=== PATIENT | female | born 1980 | race Caucasian/White ===

== ENCOUNTER → 2016-05-20 | Outpatient (CLI) | payer BC ==
--- NOTE | 2016-05-21 07:25 | REP ---
Clinical: Anatomical evaluation. Comparison: None . Findings: Examination demonstrates a single live intrauterine in breech presentation. motion is identified by technologist. Placenta is noted posteriorly and grade zero without evidence for placenta previa or abruption. Amniotic fluid volume is normal. Cervix measures 6.2 cm in length and appears closed. No evidence for nuchal cord. Gestational age by LMP 19 weeks 5 days with GENIA 10/09/2016 . Gestational age by current measurements 19 weeks 2 days with GENIA 10/12/2016 . FHR equals 131 beats per minute. BPD 4.4 cm 19 weeks 3 days HC 16.5 cm 19 weeks 2 days AC 13.7 cm 19 weeks 1 day FL 2.9 cm 19 weeks 0 days HL 2.9 cm 19 weeks 4 days HC/AC ratio 1.20 Estimated weight 273 grams ( 26 percentile). Anatomical assessment demonstrates normal structures including cranium, choroid plexus, cavum, cerebellum/posterior fossa, lungs, diaphragm, stomach, cord insertion, kidneys/bladder, spine, and upper extremities. Limited evaluation of the facial features, heart/ventricular outflow tracts, three-vessel cord, and lower extremities noted. Impression: Single live intrauterine in breech presentation demonstrating appropriate interval growth. Anatomical limitations as described above. Otherwise normal anatomical assessment. Signed by J Carlos Hester MD 05/21/2016 07:17 A
== END ==
LOC: M RAD 12:43
PROVIDERS: ATTEND Advanced Practice Midwife
DX: Z36 Encounter for antenatal screening of mother (principal)

== ENCOUNTER → 2016-06-09 | Outpatient (CLI) | payer BC ==
--- NOTE | 2016-06-10 03:14 | REP ---
Clinical: Anatomical evaluation. Comparison: 05/20/2016 . Findings: Examination demonstrates a single live intrauterine in breech presentation. motion is identified by technologist. Placenta is noted posterior fundally and grade one without evidence for placenta previa or abruption. Amniotic fluid volume is normal. Cervix measures 5.8 cm in length and appears closed. No evidence for nuchal cord. Gestational age by LMP 22 weeks 4 days with GENIA 10/09/2016 . Gestational age by current measurements 22 weeks 1 day with GENIA 10/12/2016 . FHR equals 153 beats per minutes. Estimated weight 487 grams ( 34th percentile). Anatomical assessment demonstrates normal structures including cranium, choroid plexus, cavum, cerebellum/posterior fossa, facial features, lungs, diaphragm, stomach, cord insertion/three-vessel cord, kidneys/bladder, spine, and extremities. Facial profile along with heart/cardiac ventricular outflow tracts are incompletely evaluated. Impression: Single live intrauterine in breech presentation demonstrating appropriate interval growth. Limited evaluation of the facial profile and heart/ventricular outflow tracts again noted. Remainder of the anatomical assessment is complete and normal. No gross abnormalities are identified. Signed by J Carlos Hester MD 06/10/2016 03:07 A
== END ==
LOC: M RAD 14:39
PROVIDERS: ATTEND Specialist
DX: O09.512 Supervision of elderly primigravida, second trimester (principal)

== ENCOUNTER → 2016-07-03 | Outpatient (CLI) | payer BC ==
--- NOTE | 2016-07-03 13:51 | REP ---
Obstetric sonography: History: Supervision of , followup anatomy, cardiac outflow tract and heart views and facial profile. Comparison sonography June 09, 2016. Findings: Scanning through the gravid uterus demonstrates a viable single intrauterine gestation in a variable lie. motion is observed and heart rate is recorded at 150 beats per minute. A right lateral fundal placenta is seen, grade 1, without evidence of previa or abruption. Amniotic fluid is subjectively normal. Closed cervical length measures 4.8 cm viewed transabdominally. No extrauterine abnormality is observed. There has been appropriate interval growth. No anomaly is seen. spine is less than optimally seen today due to position but was previously identified and evaluated. The following additional anatomic structures are identified and felt to be unremarkable today: cranium, choroid plexus, cavum, cerebellum and posterior fossa, face and profile, lungs, four-chamber heart with left and right ventricular outflow tract views, diaphragm, left-sided stomach, abdominal wall cord insertion, three-vessel umbilical cord, kidneys and bladder, upper and lower extremities. Biometry chart: BPD 6.2 cm 25 weeks 1 day Head circumference 24.3 cm 26 weeks 3 days Abdominal circumference 22.4 cm 26 weeks 6 days Femur length 4.8 cm 26 weeks 1 day Humeral length 4.3 cm 25 weeks 5 days Cerebellar diameter 2.9 cm 25 weeks 3 days HC/AC ratio normal 1.08. Cephalic index is 0.69 (0.70-0.86). Estimated weight 937 grams, 2 pounds 1 ounce, 55th percentile for 26 weeks 0 days. Impression: Viable single intrauterine gestation at 25 week 6 days by today's composite sonographic criteria. Expected gestational age estimate based on prior sonography is 25 weeks 4 days. GENIA by prior sonography October 12, 2016. anatomic survey is felt to be complete. Signed by Wicho Laguerre MD 07/03/2016 03:26 P
== END ==
LOC: M RAD 07:05
PROVIDERS: ATTEND Advanced Practice Midwife
DX: Z34.82 Encounter for supervision of other normal pregnancy, second trimester (principal); Z3A.25 25 weeks gestation of pregnancy

== ENCOUNTER → 2016-07-07 | Outpatient (CLI) | payer BC ==
[2016-07-07 17:40] LABS: MEAN CORPUSCULAR HEMOGLOBIN 30.3 pg (27.0-33.0); RED CELL DISTRIBUTION WIDTH 13.2 % (11.5-14.5); WHITE BLOOD COUNT 8.3 K/mm3 (4.0-10.0)
== END ==
LOC: M LAB 16:17
PROVIDERS: ATTEND Advanced Practice Midwife
DX: Z36 Encounter for antenatal screening of mother (principal)

== ENCOUNTER → 2016-07-14 | Outpatient (CLI) | payer BC | LOC: M LAB 08:17 | PROVIDERS: ATTEND Advanced Practice Midwife | DX: R73.02 Impaired glucose tolerance (oral) (principal) ==

== ENCOUNTER → 2016-08-11 | Outpatient (CLI) | payer BC ==
--- NOTE | 2016-08-11 15:59 | REP ---
OB ULTRASOUND: REASON: Followup growth parameters. Multiple sonographic images of the gravid uterus show a single living intrauterine gestation in a cephalic presentation. Doppler interrogation of the heart shows a heart rate of 143 beats per minute. The placenta is posterior and now low lying. The subjective aminotic fluid volume is within normal limits. The cervix measures 4.4 cm in length and is closed. Evaluation of the maternal adnexa spaces show no abnormalities. The aminotic fluid index is 14.8 within expected range of 8.7-24.0. BPD 7.7 cm = 31 weeks 0 days HC 29.7 cm = 32 weeks 6 days AC 27.7 cm = 31 weeks 5 days FL 6.1 cm = 31 weeks 3 days Estimated weight 1824 grams which is at the 45th percentile for a 31 week 4 day gestational age. IMPRESSION: Single intrauterine gestation as described above with an estimated gestational age of 32 weeks 0 days via composite criteria and an estimated date of delivery of 10/16/2016 by today's exam. Signed by Federico Wilson DO 08/12/2016 09:00 A
== END ==
LOC: M RAD 13:46
PROVIDERS: ATTEND Advanced Practice Midwife
DX: O24.410 Gestational diabetes mellitus in pregnancy, diet controlled (principal); O10.011 Pre-existing essential hypertension complicating pregnancy, first trimester; Z3A.00 Weeks of gestation of pregnancy not specified

== ENCOUNTER → 2016-09-08 | Outpatient (CLI) | payer BC ==
--- NOTE | 2016-09-09 04:19 | REP ---
Clinical: Gestational diabetes for well being. Comparison: 08/11/2016. Findings: Examination demonstrates a single live advanced in cephalic presentation. motion is identified by technologist. Placenta is noted right laterally and grade I without evidence for placenta previa or abruption. Amniotic fluid volume is normal. Nuchal cord cannot be excluded. Gestational age by LMP 35 weeks 4 days with GENIA is 10/09/2016 . Gestational age by current measurements 34 weeks 6 days with GENIA 10/14/2016 . FHR equals 141 beats per minute. BPD 8.3 cm 33 weeks 2 days HC 31.8 cm 35 weeks 5 days AC 31.6 cm 35 weeks 4 days FL 6.8 cm 35 weeks 0 days HL 6.0 cm 34 weeks 5-day HC/AC ratio 1.01 Estimated weight 2606 grams ( 42nd percentile). Amniotic fluid index equals 10.7 cm. Biophysical profile score equals 8/8. Umbilical cord SD ratio equals 1.93 (2.00 - 3.00). Impression: Single live advanced gestation in cephalic presentation. Appropriate growth noted. Biophysical profile score equals 8/8. Signed by J Carlos Hester MD 09/09/2016 04:10 A
== END ==
LOC: M RAD 13:22
PROVIDERS: ATTEND Obstetrics & Gynecology
DX: O24.419 Gestational diabetes mellitus in pregnancy, unspecified control (principal); Z3A.35 35 weeks gestation of pregnancy

== ENCOUNTER → 2016-09-11 | Outpatient (REF) | payer BC | LOC: M LAB REF 12:56 | PROVIDERS: ATTEND Specialist | DX: O24.419 Gestational diabetes mellitus in pregnancy, unspecified control (principal); Z3A.00 Weeks of gestation of pregnancy not specified ==

== ENCOUNTER 2016-09-25 06:21 | Inpatient (IN) | payer BC ==
[~2016-09-25] VITALS: Ht 157.5 cm; Wt 88.4 kg
[~2016-09-25 06:21] MED LIST: ASPI1TAB PO; GLIP2.5T6 PO; LABE10TAB PO; PRENTAB55 PO; TUMS500C PO; TYLE500T78 PO
[2016-09-25] MEDS ORDERED: LR 1,000 ML IV SCH ×2 (06:45→10:30)
[2016-09-25] MEDS ORDERED: BICITRA 30ML SOLN UDC PO ONE (06:45)
[2016-09-25] MEDS ORDERED: LR 800 ML IV ONE (06:45)
[2016-09-25] MEDS ORDERED: OXYC1TAB23 PO (07:06)
[2016-09-25 08:01] LABS: MEAN CORPUSCULAR HEMOGLOBIN 29.2 pg (27.0-33.0); MEAN CORPUSCULAR HGB CONC 33.4 g/dl (32.0-36.5); MEAN CORPUSCULAR VOLUME 87.4 fl (80.0-96.0); WHITE BLOOD COUNT 6.8 K/mm3 (4.0-10.0)
[2016-09-25] MEDS ORDERED: MORPHINE PRES-FREE INJ 10 MG/10 ML VIAL (J2274) As Ordered ONE (08:20)
[2016-09-25] MEDS ORDERED: OXYTOCIN INJ 10 UNITS/ML VIAL (J2590) As Ordered ONE (08:21)
[2016-09-25] MEDS ORDERED: METOCLOPRAMIDE INJ 10MG/2ML VIAL (J2765) IV PRN ×2 (08:42→10:30)
[2016-09-25] MEDS ORDERED: ONDANSETRON 4MG/2ML VIAL (J2405) IV PRN ×3 (08:42→10:30)
[2016-09-25] MEDS ORDERED: NALBUPHINE HCL 10 MG/ML AMP (J2300) IV PRN (08:42)
[2016-09-25] MEDS ORDERED: NALOXONE INJ 0.4 MG/1 ML VIAL (J2310) IV PRN ×2 (08:42)
[2016-09-25] MEDS ORDERED: GLYCOPYRROLATE INJ 0.2 MG/ML 2 ML VIAL As Ordered ONE (08:49)
[2016-09-25] MEDS ORDERED: ePHEDrine SULFATE 25 MG/5 ML(5MG/ML) SYRINGE As Ordered ONE (08:53)
[2016-09-25] MEDS ORDERED: PHENYLephrine HCL 500 MCG/5 ML (100MCG/ML) SYRINGE (J2370) As Ordered ONE (09:02)
[2016-09-25] MEDS ORDERED: KETOROLAC 60 MG/2 ML VIAL (J1885) As Ordered ONE (09:22)
[2016-09-25] MEDS ORDERED: MEASLES,MUMPS,RUBELLA VACCINE INJ (MMR-II) (90707) SC SCH (09:45)
[2016-09-25] MEDS ORDERED: DOCUSATE SODIUM 100 MG CAP PO PRN (09:45)
[2016-09-25] MEDS ORDERED: OXYTOCIN DRIP 30 UNITS in APPROPRIATE DILUENT 1 EA IV ONE (09:45)
[2016-09-25] MEDS ORDERED: RHOGAM 300 MCG (1500 IU) INJ (J2790) IM SCH (09:45)
--- NOTE | 2016-09-25 10:12 | RO ---
DATE OF PROCEDURE: 09/25/2016 PREPROCEDURE DIAGNOSES: 38 weeks, gestational hypertension, gestational diabetes, prior section times one. POSTPROCEDURE DIAGNOSES: 38 weeks, gestational hypertension, gestational diabetes, prior section times one. PROCEDURE: Repeat low transverse section. SURGEON: Dr. Santiago Liang REAGENT TENDER: Ana Maria Hurley ANESTHESIA: Spinal. ESTIMATED BLOOD LOSS: 400 mL. URINE OUTPUT: 175 mL. FLUIDS: 1400 mL of lactated Ringers. FINDINGS: 7 pound 0 ounce or 3172 gram female . scores 8 and 9. DELIVERY SUMMARY: The patient was taken the operating room where spinal anesthesia was induced. She was prepped and draped in a sterile fashion in the supine position. A Flynn catheter was placed. Pfannenstiel skin incision was made with a scalpel and carried through to the fascia. The fascia was nicked and extended. The fascia was dissected off the rectus muscles. The peritoneal cavity was entered. Bladder flap was created. Curvilinear incision was made in the lower uterine segment until clear fluid was noted. This was extended manually. The was delivered in the vertex position without difficulty. The cried spontaneously and was handed to the waiting nurses. Placenta was expressed. The uterus was exteriorized and cleared of clots and debris. The uterine incision was closed with #0 Vicryl in a running locked fashion. A second imbricating layer of #0 Vicryl was placed. The uterus was placed back in the abdominal cavity. Peritoneum was closed with #2-0 Vicryl in a running fashion. The fascia was closed with #0 Vicryl in a running fashion. Subcutaneous layer was irrigated and skin was closed with #4-0 Monocryl subcuticular sutures. Sponge and needle counts were correct.
[2016-09-25] MEDS ORDERED: PERCOCET 5MG/325MG TAB PO PRN (10:30)
[2016-09-25] MEDS ORDERED: fentaNYL 100 MCG/2 ML INJECTION (J3010) IV PRN (10:30)
[2016-09-25 11:35] VITALS: BP 125/60
[2016-09-25 12:10] VITALS: BP 116/60
[2016-09-25] MEDS: LR 1,000 ML IV SCH ×2 (12:17→20:12)
[2016-09-25 13:10] VITALS: BP 119/67
[2016-09-25] MEDS ORDERED: METOCLOPRAMIDE INJ 10MG/2ML VIAL (J2765) As Ordered ONE (13:28)
[2016-09-25 14:10] VITALS: BP 108/65
[2016-09-25] MEDS: KETOROLAC 30 MG/ML VIAL (J1885) IV SCH ×2 (14:50→20:44)
[2016-09-25 18:00] VITALS: BP 117/56
[2016-09-25 22:00] VITALS: BP 103/56
[2016-09-26] MEDS: LR 1,000 ML IV SCH ×3 (01:36→17:36)
[2016-09-26] MEDS ORDERED: LR 1,000 ML IV ONE (01:45)
[2016-09-26 01:47] VITALS: BP 100/56
[2016-09-26] MEDS: KETOROLAC 30 MG/ML VIAL (J1885) IV SCH ×2 (02:35→09:00)
[2016-09-26 06:00] VITALS: BP 112/58
[2016-09-26 07:03] LABS: RED CELL DISTRIBUTION WIDTH 13.9 % (11.5-14.5); WHITE BLOOD COUNT 7.8 K/mm3 (4.0-10.0)
[2016-09-26] MEDS: PRENATAL VITAMIN TAB PO SCH ×2 (09:00→10:09)
[2016-09-26] MEDS: PERCOCET 5MG/325MG TAB PO PRN ×3 (10:11→20:15)
[2016-09-26 10:12] VITALS: BP 138/74
[2016-09-26 14:01] VITALS: BP 112/64
[2016-09-26] MEDS: IBUPROFEN 800 MG TAB PO SCH (17:03)
[2016-09-26 18:05] VITALS: BP 118/58
[2016-09-26 22:28] VITALS: BP 125/69
[2016-09-27] MEDS: IBUPROFEN 800 MG TAB PO SCH ×2 (00:48→09:36)
[2016-09-27] MEDS: PERCOCET 5MG/325MG TAB PO PRN (04:13)
[2016-09-27 06:22] VITALS: BP 108/53
--- NOTE | 2016-09-27 08:08 | DSES ---
DATE OF ADMISSION: 09/25/2016 DATE OF DISCHARGE: 09/27/2016 HISTORY: A 36-year-old 2, para 1 female 38 and 0/7 weeks gestation presents for a low repeat section. INDICATION FOR DELIVERY LESS THAN 39 WEEKS: Has chronic hypertension, on medications and gestational diabetes requiring oral medication. HOSPITAL COURSE: The patient was admitted on 09/25/2016 and underwent repeat low transverse section, the procedure was without complication. Her postoperative course was unremarkable. She adequately returned to bladder and bowel function. She is deemed stable for discharge on postoperative day #2. ADMISSION DIAGNOSIS: 38 weeks. Hypertension. Gestational diabetes. DISCHARGE DIAGNOSIS: Delivered. PROCEDURE: Repeat low transverse section. DISPOSITION: The patient will followup with Dr. Liang in 2 weeks. Instructions were reviewed.
[2016-09-27] MEDS ORDERED: IBUP200C PO (09:51)
[2016-09-27] MEDS ORDERED: IBUP80TA PO (09:51)
== END 2016-09-27 12:20 | disposition home or self-care (01) | DRG 540 ==
LOC: M LDI 06:21 → M OBS 11:36
PROVIDERS: ADMIT Specialist; ATTEND Specialist
PROC: 10D00Z1 Extraction of Products of Conception, Low, Open Approach (ICD-10-PCS; principal; 2016-09-25 08:30)
DX: O13.4 Gestational [pregnancy-induced] hypertension without significant proteinuria, complicating childbirth (principal); O24.425 Gestational diabetes mellitus in childbirth, controlled by oral hypoglycemic drugs; Z37.0 Single live birth; Z3A.38 38 weeks gestation of pregnancy; Z79.84 Long term (current) use of oral hypoglycemic drugs; O34.211 Maternal care for low transverse scar from previous cesarean delivery; Z79.899 Other long term (current) drug therapy

== ENCOUNTER → 2019-09-28 | Outpatient (CLI) | payer BC ==
[~2019-09-28] MED LIST changes: -ASPI1TAB PO; +ASPI81TA26 PO; +IBUP200C25 PO; +IBUP80TA PO; +OXYC1TAB23 PO
--- NOTE | 2019-09-29 03:29 | REP ---
Clinical: Anatomical evaluation. Comparison: None . Findings: Examination demonstrates a single live intrauterine in cephalic presentation. motion is identified by technologist. Placenta is noted posterior and grade I without evidence for placenta previa or abruption. Amniotic fluid volume is normal. Cervix measures 4.8 cm in length and appears closed. No evidence for nuchal cord. Gestational age by LMP 19 weeks 2 days with GENIA 02/20/2020 . Gestational age by current measurements 18 weeks 5 days with GENIA 02/24/2020 . FHR equals 136 beats per minute. BPD 4.2 cm 18 weeks 5 days HC 15.8 cm 18 weeks 5 days AC 13.2 cm 18 weeks 5 days FL 3.0 cm 19 weeks 1 day HL 2.8 cm 18 weeks 6 days HC/AC ratio 1.19 Estimated weight 262 grams ( 32nd percentile). Anatomical assessment demonstrates normal structures including cranium, choroid plexus, cavum, cerebellum/posterior fossa, lungs, four-chamber heart/ventricular outflow tracts, diaphragm, stomach, cord insertion/three-vessel cord, kidneys/bladder, spine, and extremities. Impression: Single live intrauterine in cephalic presentation demonstrating appropriate estimated weight and growth. Limited evaluation of the facial features noted. Remainder of the anatomical assessment is complete and normal.
== END ==
LOC: M WHC 14:06
PROVIDERS: ATTEND Obstetrics & Gynecology
DX: O09.522 Supervision of elderly multigravida, second trimester (principal); Z3A.18 18 weeks gestation of pregnancy

== ENCOUNTER → 2019-12-01 | Outpatient (CLI) | payer BC, MEDICAID ==
[~2019-12-01] MED LIST changes: +ASPI81TA86 PO; +CLAR10CA3 PO; +GLYB25TA PO; +IMIT100T PO; +PERCOCET PO; +PYRI50TA40 PO; +VITAD400CA PO
--- NOTE | 2020-01-23 08:08 | REP ---
OBSTETRIC SONOGRAPHY HISTORY: Supervision of . Maternal care for low transverse scar from previous delivery. Preexisting hypertension affecting in the second trimester. Follow-up anatomy, facial features. Estimated date of delivery (GENIA) 02/20/2020. This report was delayed due to a malware attack on this facility. ULTRASOUND FINDINGS: Scanning through the gravid uterus demonstrates a single living intrauterine gestation in a transverse lie. Placenta is anterior grade 1 without evidence of previa or abruption. heart rate is recorded at 170 beats per minute. face and lips are seen today and are felt to be unremarkable. Amniotic fluid is subjectively normal. MAHI is normal at 12.2 cm. Closed cervical length is 5.0 cm measured transabdominally. BIOMETRY CHART: BPD 67 mm 27 weeks 1 day Head Circumference 249 mm 27 weeks 1 day Abdominal Circumference 227 mm 27 weeks 1 day Femur Length 52 mm 28 weeks 0 days Humeral Length 46 mm 27 weeks 5 days IMPRESSION: Viable single intrauterine gestation at 27 weeks 3 days by todays composite sonographic criteria. Estimated date of delivery (GENIA) by prior sonography 02/20/2020. Facial features are felt to be seen and unremarkable. MTDD
== END ==
LOC: M WHC 12:38
PROVIDERS: ATTEND Advanced Practice Midwife
DX: O34.211 Maternal care for low transverse scar from previous cesarean delivery (principal); O10.912 Unspecified pre-existing hypertension complicating pregnancy, second trimester

== ENCOUNTER → 2020-01-19 | Outpatient (CLI) | payer BC, MEDICAID ==
--- NOTE | 2020-02-03 11:42 | REP ---
FOLLOW-UP OBSTETRICAL ULTRASOUND CLINICAL: Growth and amniotic fluid index. COMPARISON: 12/01/2019. FINDINGS: Ultrasound examination demonstrates a single live intrauterine in cephalic presentation. motion was identified by the technologist. Placenta is noted right laterally and grade 1 without evidence for placenta previa or abruption. Amniotic fluid volume is low normal. Cervix measures 3.2 cm in length and appears closed. Nuchal cord noted. Gestational age by last menstrual period (LMP) 35 weeks 3 days with estimated date of delivery 02/20/2020. Gestational age by current measurements 33 weeks 4 days with estimated date of delivery 03/04/2020. heart rate 131 beats per minute. Amniotic fluid index (MAHI) equals 5.1 cm (7.8-24.9). HC/AC ratio 1.04. Estimated weight 2215 grams (27th percentile based on age by LMP). Umbilical artery S/D ratio: 3.12 (1.66-3.56). Middle cerebral artery spondylosis ratio equals 3.31; RI equals 0.70. IMPRESSION: * Single live advanced gestation in cephalic presentation demonstrating appropriate estimated weight. * Nuchal cord. * Amniotic fluid index (MAHI) is below normal range at 5.1 cm. MTDD
== END ==
LOC: M RAD 16:08
PROVIDERS: ATTEND Advanced Practice Midwife
DX: O13.3 Gestational [pregnancy-induced] hypertension without significant proteinuria, third trimester (principal); O24.419 Gestational diabetes mellitus in pregnancy, unspecified control; Z3A.33 33 weeks gestation of pregnancy

== ENCOUNTER → 2020-01-24 | Outpatient (REF) | payer BC, MEDICAID | LOC: M SFHCPLAZ 10:06 | PROVIDERS: ATTEND Specialist | DX: Z34.83 Encounter for supervision of other normal pregnancy, third trimester (principal); Z3A.00 Weeks of gestation of pregnancy not specified ==

== ENCOUNTER → 2020-02-07 | Outpatient (CLI) | payer BC, MEDICAID | LOC: M LABSMTC 09:29 | PROVIDERS: ATTEND Anesthesiology | DX: Z01.812 Encounter for preprocedural laboratory examination (principal); Z20.828 Contact with and (suspected) exposure to other viral communicable diseases | CPT/HCPCS: C9803; U0002 ==

== ENCOUNTER 2020-02-08 05:51 | Inpatient (IN) | payer BC, MEDICAID ==
[~2020-02-08] VITALS: Ht 157.5 cm; Wt 87.3 kg
[2020-02-08] VITALS (7 sets, daily range): BP systolic 105–139; BP diastolic 54–81
[~2020-02-08 05:51] MED LIST changes: -PERCOCET PO
[2020-02-08 06:42] LABS: HEMATOCRIT 34.1 % (36.0-47.0); HEMOGLOBIN 11.3 g/dl (12.0-15.5); MEAN CORPUSCULAR HEMOGLOBIN 29.8 pg (27.0-33.0); MEAN CORPUSCULAR HGB CONC 33.1 g/dl (32.0-36.5); PLATELET COUNT, AUTOMATED 144 10^3/uL (150-450); RED BLOOD COUNT 3.79 10^6/uL (4.00-5.40); WHITE BLOOD COUNT 7.2 10^3/uL (4.0-10.0)
[2020-02-08] MEDS ORDERED: LR 1,000 ML IV SCH ×2 (07:11→10:15)
[2020-02-08] MEDS ORDERED: LACTATED RINGER'S 1000 ML IV STA (07:11)
[2020-02-08] MEDS ORDERED: BICITRA 30ML SOLN UDC PO ONE (07:15)
[2020-02-08] MEDS ORDERED: ceFAZolin SOD 2 GM in IV 1 EA IV ONE (07:15)
[2020-02-08] MEDS ORDERED: ONDANSETRON 4MG/2ML VIAL As Ordered ONE (08:55)
[2020-02-08] MEDS ORDERED: MORPHINE PRES-FREE INJ 10 MG/10 ML VIAL (J2274) As Ordered ONE (08:55)
[2020-02-08] MEDS ORDERED: OXYTOCIN INJ 10 UNITS/ML VIAL (J2590) As Ordered ONE (08:55)
[2020-02-08] MEDS ORDERED: ePHEDrine SULFATE 25 MG/5 ML(5MG/ML) SYRINGE As Ordered ONE (09:02)
[2020-02-08] MEDS ORDERED: OXYTOCIN DRIP 30 UNITS in IV 1 EA IV SCH (09:49)
[2020-02-08] MEDS ORDERED: NALBUPHINE HCL 10 MG/ML AMP (J2300) IV PRN (09:54)
[2020-02-08] MEDS ORDERED: NALOXONE INJ 0.4MG/1ML VIAL (J2310 PER 1MG) IV PRN ×2 (09:54)
[2020-02-08] MEDS ORDERED: diphenhydrAMINE 50MG/ML VIAL (J1200) IV PRN (09:54)
[2020-02-08] MEDS ORDERED: METOCLOPRAMIDE INJ 10MG/2ML VIAL (J2765 PER 1) IV PRN (09:54)
[2020-02-08] MEDS ORDERED: ONDANSETRON 4MG/2ML VIAL IV PRN ×3 (09:54→10:15)
[2020-02-08] MEDS ORDERED: MEASLES,MUMPS,RUBELLA VACCINE INJ (MMR-II) (90707) SC SCH (10:00)
[2020-02-08] MEDS ORDERED: KETOROLAC 30 MG/ML 1ML VIAL IV SCH (10:00)
[2020-02-08] MEDS ORDERED: PERCOCET 5MG/325MG TAB PO PRN (10:00)
[2020-02-08] MEDS ORDERED: RHOGAM 300 MCG (1500 IU) INJ (J2790) IM SCH (10:00)
[2020-02-08] MEDS ORDERED: OXYTOCIN 30 UNITS IN 0.9% NaCl 500ML IV BAG (J2590) As Ordered ONE (10:05)
--- NOTE | 2020-02-08 10:07 | ROOPDOC ---
[facility] Report Of Operation Report of Operation DATE OF PROCEDURE: 02/08/20 PREPROCEDURE DIAGNOSES: 38 weeks, gestational diabetes, prior x 2, undesired fertility. POSTPROCEDURE DIAGNOSES: same. PROCEDURE: repeat low transverse and bilateral tubal ligation. SURGEON: Santiago Liang MD ALTERATION SPECIALIST: Ana Maria Hurley CNM ANESTHESIA: Spinal. ESTIMATED BLOOD LOSS: Approximately 400 mL. Findings: 6 lb 1 oz female, Apgars 8, 9. Normal uterus, tubes ovaries. COMPLICATIONS: none. Summary: The patient was taken to the OR where spinal anesthesia was induced. A Flynn Catheter was placed. A Pfannenstiel skin incision was created with a scalpel. The fascia was nicked and extended. The peritoneal cavity was entered. A Mobius retractor was placed. A curvilinear incision was made in the lower uterine segment. Membranes were ruptured with clear fluid. The infant was delivered from the vertex position without difficulty. The cord was doubly clamped and cut. The infant was handed to the awaiting nurses. The uterus was closed with O-Vicryl in a running locked fashion. A second imbricating layer was placed. Attention was turned to the fallopian tubes. The tubes were grasped with a Roebling clamp at the mid-portion. A window was created in the broad ligament bilaterally. The tubes were secured on either end by a free tie of 3-O chromic. A segment of each tube was removed. The peritoneum was closed with 2-O chromic in a running fashion. THE fascia was closed with O-Vicryl in a running fashion. The deep layer was irrigated. The skin was closed with 4-O Monocryl in a running fashion. Sponge, needle, instrum ent counts correct. Ana Maria Hurley CNM, assisted throughout the procedure. She helped create all layers of the incision. She was indispensable to the procedure. MD VIPIN Barcenas JOHN P. MD Feb 08, 2020 10:07
[2020-02-08] MEDS ORDERED: fentaNYL 100 MCG/2 ML INJECTION (J3010) IV PRN (10:15)
[2020-02-08] MEDS ORDERED: oxyCODONE 5MG TAB PO PRN (10:15)
[2020-02-08] MEDS: LR 1,000 ML IV SCH ×2 (11:59→18:20)
[2020-02-08] MEDS ORDERED: PROMETHAZINE INJ 25 MG/ML VIAL (J2550) IV ONE (15:15)
[2020-02-08] MEDS: KETOROLAC 30 MG/ML 1ML VIAL IV SCH (18:19)
[2020-02-08] MEDS ORDERED: LR 1,000 ML IV ONE (20:00)
[2020-02-09] MEDS: KETOROLAC 30 MG/ML 1ML VIAL IV SCH ×2 (00:39→06:03)
[2020-02-09] MEDS: LR 1,000 ML IV SCH (01:49)
[2020-02-09 02:09] VITALS: BP 109/56
[2020-02-09 06:25] VITALS: BP 110/66
[2020-02-09 08:27] LABS: HEMATOCRIT 30.4 % (36.0-47.0); HEMOGLOBIN 9.9 g/dl (12.0-15.5); MEAN CORPUSCULAR HEMOGLOBIN 29.9 pg (27.0-33.0); MEAN CORPUSCULAR HGB CONC 32.6 g/dl (32.0-36.5); MEAN CORPUSCULAR VOLUME 91.8 fl (80.0-96.0); PLATELET COUNT, AUTOMATED 137 10^3/uL (150-450); RED BLOOD COUNT 3.31 10^6/uL (4.00-5.40); WHITE BLOOD COUNT 9.4 10^3/uL (4.0-10.0)
[2020-02-09] MEDS: PRENATAL VITAMINS CHEWABLE TABLET PO SCH (09:22)
[2020-02-09] MEDS: PERCOCET 5MG/325MG TAB PO PRN ×3 (09:23→19:45)
[2020-02-09 10:00] VITALS: BP 119/63
[2020-02-09] MEDS ORDERED: IBUPROFEN 800 MG TAB PO SCH (12:00)
[2020-02-09] MEDS: IBUPROFEN 800 MG TAB PO SCH ×2 (14:29→21:43)
[2020-02-09 17:50] VITALS: BP 132/71
[2020-02-09] MEDS: DOCUSATE SODIUM 100 MG CAP PO SCH (19:45)
[2020-02-09 22:00] VITALS: BP 129/66
[2020-02-10 02:00] VITALS: BP 129/82
[2020-02-10] MEDS: IBUPROFEN 800 MG TAB PO SCH ×2 (05:30→13:18)
[2020-02-10 05:45] VITALS: BP 133/77
[2020-02-10] MEDS: PRENATAL VITAMINS CHEWABLE TABLET PO SCH (08:56)
[2020-02-10] MEDS: DOCUSATE SODIUM 100 MG CAP PO SCH (08:56)
[2020-02-10] MEDS: PERCOCET 5MG/325MG TAB PO PRN ×2 (08:57→13:17)
[2020-02-10] MEDS ORDERED: PERCOCET PO (09:30)
[2020-02-10] MEDS ORDERED: IBUP80TA PO (09:30)
--- NOTE | 2020-02-10 09:50 | DS.PDOC ---
Discharge Summary General Date of Admission Feb 08, 2020 at 05:51 Date of Discharge 02/10/20 Discharge Summary DATE OF ADMISSION: 02/08/2020 DATE OF DISCHARGE: 02/10/2020 ADMISSION DIAGNOSIS: 38 weeks gestation, history of low transverse section 2. Satisfied parity DISCHARGE DIAGNOSIS: Status post repeat low transverse section and bilateral tubal ligation DISCHARGE SUMMARY: The patient was admitted at 38 weeks gestation for scheduled repeat low transverse section and bilateral tubal ligation. The section delivery was uncomplicated. Her postoperative course was uncomplicated as well. On postoperative day #2, she was meeting all discharge criteria. PHYSICAL EXAMINATION ON DATE OF DISCHARGE: Normotensive. Normal heart rate. Afebrile. HEART: Regular rate and rhythm. No murmurs, gallops, or rubs. LUNGS: Clear to auscultation bilaterally. ABDOMEN: Soft, nontender, nondistended. Incision bandage clean and dry. EXTREMITIES: Nonedematous, nontender. She was meeting all discharge criteria on postoperative day #2. We reviewed routine fever, infectious, pain, and bleeding precautions. She is to followup in 2 weeks for incision check. Her postoperative medications are Percocet, Motrin, and Colace. Vital Signs/I&Os Vital Signs Date Time Temp Pulse Resp B/P (MAP) Pulse Ox O2 Delivery O2 Flow Rate FiO2 02/10/20 09:33 18 02/10/20 05:45 98.6 77 133/77 (95) 02/09/20 17:00 Room Air 02/09/20 06:25 98 I&O- Last 24 Hours up to 6 AM 02/10/20 06:00 Intake Total 500 ml Output Total 900 ml Balance -400 ml Discharge Medications Scheduled Aspirin (Aspir 81) 81 Mg Tablet.dr, 81 MG PO DAILY for pain, (Reported) Ibuprofen (Ibuprofen) 800 Mg Tablet, 800 MG PO Q8H Loratadine (Claritin) 10 Mg Capsule, 10 MG PO DAILY for allergy symptoms, (Reported) [id number]/Iron Fum/Folic/Docusate ( 19 Tablet) 1 Tab Tab, 1 TAB PO DAILY, (Reported) Pyridoxine HCl (Vitamin B6) (Vitamin B-6) 50 Mg Tablet, 50 MG PO DAILY, (Reported) Sumatriptan Succinate (Imitrex) 100 Mg Tablet, 100 MG PO ASDIRECTED for headache, (Reported) with fluids as early as possible after the onset of a migraine attack;may repeat after 2 hours if headache returns, not to exce Vitamin D (Vitamin D3) 10 Mcg Tablet, 400 MCG PO DAILY, (Reported) Scheduled PRN Acetaminophen (Tylenol Extra Strength) 500 Mg Tab, 500 MG PO Q4HP PRN for PAIN, (Reported) Oxycodone/Acetaminophen (Oxycodone-Acetaminophen 5-325) 1 Each Tablet, 1 TAB PO Q4H PRN for MILD/MODERATE PAIN (PS 1-7) Allergies Coded Allergies: latex (Verified Allergy, Unknown, HIVES, 02/02/20) SIL CARR DO Feb 10, 2020 09:50
== END 2020-02-10 14:25 | disposition home or self-care (01) | DRG 540 ==
LOC: M LDI 05:51 → M OBS 11:44
PROVIDERS: ADMIT Specialist; ATTEND Specialist
PROC: 0UB70ZZ Excision of Bilateral Fallopian Tubes, Open Approach (ICD-10-PCS; 2020-02-08)
PROC: 10D00Z1 Extraction of Products of Conception, Low, Open Approach (ICD-10-PCS; principal; 2020-02-08 08:30)
DX: O34.211 Maternal care for low transverse scar from previous cesarean delivery (principal); Z3A.38 38 weeks gestation of pregnancy; O24.429 Gestational diabetes mellitus in childbirth, unspecified control; Z37.0 Single live birth; Z30.2 Encounter for sterilization

== ENCOUNTER → 2020-07-17 | Outpatient (REF) | payer BC, MEDICAID ==
[~2020-07-17] MED LIST changes: +GLYB2.5T7 PO; -GLYB25TA PO; +LABE100T4 PO; -LABE10TAB PO; +PERCOCET PO
== END ==
LOC: M SFHCWAGY 19:15
PROVIDERS: ATTEND Specialist
DX: Z01.419 Encounter for gynecological examination (general) (routine) without abnormal findings (principal)

== ENCOUNTER → 2020-08-14 | Outpatient (CLI) | payer BC, MEDICAID ==
--- NOTE | 2020-08-14 17:23 | REPMRS ---
Patient History The patient states she had a clinical breast exam in July 2020. Family history of prostate cancer at age 58 in father, colorectal cancer at age 53 in paternal uncle. 3D TOMOSYNTHESIS WAS PERFORMED. [facility] lifetime risk for breast cancer is 8.9%. Volpara breast density b. Digital Woman Screen Mammo: August 14, 2020 - Exam #: [id number] Bilateral CC and MLO view(s) were taken. Technologist: Joan Chaidez, Technologist No prior studies available for comparison. FINDINGS: There are scattered fibroglandular densities. There is a mild amount of residual fibroglandular tissue which is fairly symmetric. There is no dominant mass, architectural distortion, or clustered microcalcification suggestive of malignancy. Assessment: BI-RADS/ACR category 1 mammogram. Negative Mammogram. Recommendation Routine screening mammogram in 1 year (for women over age 40). This mammogram was interpreted with the aid of an FDA-approved computer-aided dectection system. Electronically Signed By: John Salgado MD 08/14/20 [id number]
== END ==
LOC: M WHC 16:21
PROVIDERS: ATTEND Specialist
DX: Z12.31 Encounter for screening mammogram for malignant neoplasm of breast (principal); Z80.0 Family history of malignant neoplasm of digestive organs; Z80.42 Family history of malignant neoplasm of prostate

== ENCOUNTER → 2021-08-20 | Outpatient (REF) | payer BC, MEDICAID | LOC: M SFHCWAGY 12:57 | PROVIDERS: ATTEND Specialist | DX: Z01.419 Encounter for gynecological examination (general) (routine) without abnormal findings (principal) ==

== ENCOUNTER → 2021-08-20 | Outpatient (CLI) | payer BC, MEDICAID | LOC: M WHC 09:53 | PROVIDERS: ATTEND Specialist | DX: Z12.31 Encounter for screening mammogram for malignant neoplasm of breast (principal); Z80.42 Family history of malignant neoplasm of prostate; Z80.0 Family history of malignant neoplasm of digestive organs ==

== ENCOUNTER → 2023-01-19 | Outpatient (REF) | payer BC, MEDICAID ==
[~2023-01-19] MED LIST changes: -LABE100T4 PO; +LABE100T6 PO
== END ==
LOC: M SFHCWAGY 18:08
PROVIDERS: ATTEND Specialist
DX: Z12.4 Encounter for screening for malignant neoplasm of cervix (principal)
CPT/HCPCS: 87624; G0123

== ENCOUNTER → 2023-01-19 | Outpatient (CLI) | payer BC, MEDICAID | LOC: M WHC 10:05 | PROVIDERS: ATTEND Specialist | DX: Z12.31 Encounter for screening mammogram for malignant neoplasm of breast (principal) ==

== ENCOUNTER → 2024-05-23 | Outpatient (CLI) | payer BC | LOC: M WHC 12:43 | PROVIDERS: ATTEND Nurse Practitioner Family | DX: R92.2 Inconclusive mammogram (principal) ==

== ENCOUNTER → 2024-06-07 | Outpatient (CLI) | payer BC | LOC: M WHC 09:13 | PROVIDERS: ATTEND Nurse Practitioner Family | DX: R10.2 Pelvic and perineal pain (principal); Z12.31 Encounter for screening mammogram for malignant neoplasm of breast; N88.8 Other specified noninflammatory disorders of cervix uteri | CPT/HCPCS: 76642; 76830; 76856; 77065; G0279 ==

== ENCOUNTER → 2024-07-19 | Outpatient (CLI) | payer BC ==
[~2024-07-19] MED LIST changes: +GLIP2.5T46 PO; -GLIP2.5T6 PO
== END ==
LOC: M WHC 12:55
PROVIDERS: ATTEND Nurse Practitioner Family
DX: N83.201 Unspecified ovarian cyst, right side (principal)

== ENCOUNTER → 2024-12-06 | Outpatient (CLI) | payer BC | LOC: M WHC 09:07 | PROVIDERS: ATTEND Nurse Practitioner Family | DX: R92.8 Other abnormal and inconclusive findings on diagnostic imaging of breast (principal); R92.323 Mammographic fibroglandular density, bilateral breasts | CPT/HCPCS: 77065; G0279 ==

== ENCOUNTER → 2025-03-29 | Outpatient (CLI) | payer BC ==
[~2025-03-29] MED LIST changes: -LABE100T6 PO; +LABE100T91 PO
== END ==
LOC: M EKG 14:47
PROVIDERS: ATTEND Physician Assistant
DX: R00.0 Tachycardia, unspecified (principal)